=== PATIENT | male | born 1955 | race Two or more races ===

== ENCOUNTER 2019-09-21 14:41 | Emergency (ER) | payer MEDICARE ==
[~2019-09-21] VITALS: Ht 172.7 cm; Wt 80.4 kg
--- NOTE | 2019-09-21 15:23 | NUR ---
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
[2019-09-21 16:35] VITALS: BP 187/101
--- NOTE | 2019-09-21 16:37 | NUR ---
TASK RN : Patient/Caregiver given discharge instructions and they have confirmed that they understand the instructions. Patient ambulatory with steady gait.
== END 2019-09-21 17:08 | disposition home or self-care (01) ==
LOC: ED 16:15
DX: K42.9 Umbilical hernia without obstruction or gangrene (principal); I10 Essential (primary) hypertension
CPT/HCPCS: 93005; 99283

== ENCOUNTER 2020-07-02 12:15 | Emergency (ER) | payer MEDICARE ==
[~2020-07-02] VITALS: Ht 172.7 cm; Wt 76.0 kg
[2020-07-02 12:22] VITALS: BP 170/86
--- NOTE | 2020-07-02 12:41 | NUR ---
Pt arrives to ed with c/o of abd pain. Pt reports that his umbilical hernia is worse and needs to get operated on it. Pt reports that his hernia is larger than last time but he is still able to reduce it. Pts umbilical hernia does not appear discolored or painful to touch. Pt reports he would like a refferal to a surgeon. Pt has no other complaints and verbalized he would like to eat something. Pt connected to monitor and call light in reach.
--- NOTE | 2020-07-02 13:47 | NUR ---
Patient/Caregiver given discharge instructions and they have confirmed that they understand the instructions. Patient ambulatory with steady gait.
== END 2020-07-02 13:52 | disposition home or self-care (01) ==
LOC: ED 13:00
DX: K42.9 Umbilical hernia without obstruction or gangrene (principal)
CPT/HCPCS: 99281

== ENCOUNTER 2021-03-09 03:06 | Emergency (ER) | payer MEDICARE ==
[~2021-03-09] VITALS: Ht 172.7 cm; Wt 85.1 kg
--- NOTE | 2021-03-09 03:13 | NUR ---
[id number]
--- NOTE | 2021-03-09 04:07 | NUR ---
Pt walked to room states "oh good a bed now I can sleep". Requested pt change completely into gown.
[2021-03-09 05:02] LABS: BASOPHILS % (AUTO) 1 % (0-1); EOSINOPHILS % (AUTO) 9 % (1-7); LYMPHOCYTES % (AUTO) 22 % (22-44); MEAN CORPUSCULAR HEMOGLOBIN 32.8 pg (27.5-34.5); MEAN CORPUSCULAR HGB CONC 34.3 g/dL (33.2-36.2); MEAN PLATELET VOLUME 9.3 fL (7.4-10.4); MONOCYTES % (AUTO) 7 % (2-9); NEUTROPHILS % (AUTO) 61 % (42-75); PLATELET COUNT 60 x10^3/uL (130-400); RED BLOOD COUNT 4.61 x10^6/uL (4.38-5.82)
[2021-03-09 05:10] LABS: ALBUMIN 2.9 g/dL (3.4-5.0); ANION GAP 4 mmol/L (5-15); CALCIUM 8.4 mg/dL (8.5-10.1); CHLORIDE 109 mmol/L (98-107)
[2021-03-09 05:12] LABS: ALANINE AMINOTRANSFERASE 51 U/L (12-78); ALKALINE PHOSPHATASE 141 U/L (45-117); CREATININE 0.84 mg/dL (0.7-1.3); TOTAL PROTEIN 8.4 g/dL (6.4-8.2)
[2021-03-09 05:56] VITALS: BP 123/72
--- NOTE | 2021-03-09 05:56 | NUR ---
TASK RN: PT SUPINE ON OSEI SMALLS, VSS. PT DENIES ANY NEEDS AT THIS TIME. CALL LIGHT AND PERSONAL BELONGINGS WITHIN REACH.
--- NOTE | 2021-03-09 06:11 | NUR ---
Patient given discharge instructions and they have confirmed that they understand the instructions. Patient ambulatory with steady gait.
== END 2021-03-09 06:13 | disposition home or self-care (01) ==
LOC: ED 06:07
DX: R19.7 Diarrhea, unspecified (principal)
CPT/HCPCS: 36415; 80053; 83690; 85025; 99283